=== PATIENT | female | born 1985 | race Caucasian/White ===

== ENCOUNTER 2023-08-01 15:43 | Outpatient (CLI) | payer MEDICAID, SELFPAY | END 2023-08-01 15:44 | disposition home or self-care (01) | PROVIDERS: PCP Family Medicine; Visit Provider Family Medicine | DX: I47.10 Supraventricular tachycardia, unspecified (principal); I10 Essential (primary) hypertension; Z13.29 Encounter for screening for other suspected endocrine disorder | CPT/HCPCS: 82043; 82570; 84443 ==

== ENCOUNTER 2023-09-30 08:36 | Outpatient (CLI) | payer MEDICAID, SELFPAY | END 2023-09-30 08:37 | disposition home or self-care (01) | PROVIDERS: PCP Family Medicine; Visit Provider Family Medicine | DX: F10.10 Alcohol abuse, uncomplicated (principal); I10 Essential (primary) hypertension; Z11.59 Encounter for screening for other viral diseases | CPT/HCPCS: 80053; 82043; 82306; 82570; 82607; 84425; 84443; 86803 ==

== ENCOUNTER 2024-06-03 12:01 | Outpatient (CLI) | payer MEDICAID, SELFPAY | END 2024-06-03 12:02 | disposition home or self-care (01) | PROVIDERS: PCP Family Medicine; Visit Provider Family Medicine | DX: R79.89 Other specified abnormal findings of blood chemistry (principal); E55.9 Vitamin D deficiency, unspecified; I10 Essential (primary) hypertension; I16.0 Hypertensive urgency; I47.10 Supraventricular tachycardia, unspecified; R26.89 Other abnormalities of gait and mobility; R51.9 Headache, unspecified; R55 Syncope and collapse; H53.9 Unspecified visual disturbance; Z78.9 Other specified health status | CPT/HCPCS: 80053; 80074; 83835; 84425 ==